=== PATIENT | male | born 1995 | race American Indian/Alaskan Native ===

== ENCOUNTER 2017-09-25 09:18 | Outpatient (CLI) | payer BC ==
--- NOTE | 2017-09-25 12:28 | CT ---
CT TEMPORAL BONES NONCONTRAST: 09/25/2017 HISTORY: A 22-year-old male with a diagnosis of L57.0 keratosis. No other clinical information is available. FINDINGS: The lateral aspects of the bilateral external auditory canals have focal slight soft tissue thickenin g, with minimal narrowing, but otherwise, the rest of bilateral external auditory canals are not narr owed. The right external auditory canal actually appears widened, compared to the left. Furthermore , there appears to be at least 2 focal osseous defects of the right external auditory canal, one at t he posterior wall involving (anterior wall of the right mastoid bone), and the other at the inferior wall. The posterior wall defect communicates with some mastoid air cells which, in turn, comminute w ith the right mastoid antrum. All the bilateral mastoid air cells, middle ear cavities, and mastoid antra, are clear. The pars tensa of the right tympanic membrane appears minimally thicker than the l eft. There is a tiny focal 2 x 0.5 mm faint density at the inferior aspect of the right external aud itory canal (seen on coronal image 36 of 88, series 300), but otherwise, the bilateral external audit ory canals are clear. The left scutum is intact. The right scutum appears to have several tiny osse ous defects in its upper and lateral components, questionable for previous surgical intervention. Th e bilateral ossicles, internal auditory canals, cochleae, vestibules, vestibular aqueducts, facial ne rve canals, carotid canals, jugular bulbs, and TMJs, have normal morphology. There is no dehiscence of the superior semicircular canals. IMPRESSION: 1. 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 2. However, there are small focal osseous defects at the posterior and inferior christensen of the right e xternal auditory canal, and of the right scutum, which are questionable for old post surgical changes . 3. The pars tensa of the right tympanic membrane is minimally thickened. POS: [facility]
== END 2017-09-25 09:19 | disposition home or self-care (01) ==
LOC: CT 09:18
PROVIDERS: ATTEND Specialist
DX: L57.0 Actinic keratosis (principal); H73.891 Other specified disorders of tympanic membrane, right ear
CPT/HCPCS: 70480